=== PATIENT | female | born 1975 | race Caucasian/White ===

== ENCOUNTER 2017-01-30 12:27 | Inpatient (IN) ==
--- NOTE | 2017-01-30 13:03 | Emergency Department Note ---
Dyllan Medrano Brittany, am scribing for, and in the presence of, Prateek Gaspar MD 12: 55. Chasity Medrano James D, MD, personally performed the services described in this documentation, ascribed by Kitty Mijares in my presence, and it is both accurate and complete . Arrival - Arrival Chief Complaint: Chest Pain Stated Complaint: CP TRANSFER ED Nursing Triage Note: PT TRANSFERED FROM [facility] ER FOR EVALUATION OF CHEST PAIN. PT HAD + DRUG SCREEN [employer]HALT [employer]ER. PT REPORTS HAVING THIS CP FOR SEVERAL MONTHS. Mode of Arrival: Stretcher Limitations: No Limitations Source: Patient, RN Notes Reviewed - History of Present Illness HPI Narrative: This is a 41 y/o white female, who presents to the ED for further elevation of CP which started 3 months ago. She was transferred from [facility] for chest pains. She reports she is SOB with the chest pain but is not associated with exertion. . She denies any diaphoresis. She reports nausea as well. She states she was given Lovanox, Aspirin, and Nitro while at [facility]. She now states the chest pain is resolved. Pt has no other complaints/pain in the ED at this time. Pt has a PMHx fo HTN and GERD. PT denies a surgical Hx. Pt has a family medical hx of heart disease. Pt smokes 1 PPD, but denies the use of street drugs and alcohol. Onset (ago): month(s) ("Several months") Consistency: now resolved Severity: moderate Allergies/Adverse Reactions: Allergies Allergy/AdvReac Type Severity Reaction Status Date / Time No Known Allergies Allergy Unverified 01/30/17 12:30 Home Medications: Home Medications Medication Instructions Recorded Confirmed Type Unable To Obtain [Unable to Obtain] 01/30/17 01/30/17 History Review of System - Review of System 12 point system: reviewed and no additional remarkable complaints except as stated - Review of System Constitutional: Absent: diaphoresis Cardiovascular: Present: chest pain, other (Dyspnea) Gastrointestinal: Present: nausea Medical,Surgical,& Family Hx - Medical History Cardio: History of: Hypertension Gastrointestinal: History of: GERD - Family History Family History: Reports;: Family Heart Disease - Social History Smoking Status: Unknown if ever smoked Exam Vital Signs: Vital Signs Temperature 97.0 F L 01/30/17 12:45 Pulse Rate 56 L 01/30/17 12:45 Respiratory Rate 20 01/30/17 12:45 Blood Pressure 114/65 01/30/17 12:45 O2 Sat by Pulse Oximetry 95 01/30/17 12:45 GENERAL: This is a well-nourished well-developed white female, smells of cigarettes, in no apparent distress. VITAL SIGNS: Reviewed HEENT: Head is atraumatic and normocephalic. Pupils are equal round react to light. Extraocular movements are intact. Oropharynx is benign with moist mucous membranes. NECK: Neck is soft and supple without tenderness. There are no masses. There is no lymphadenopathy. LUNGS: Lungs are clear to auscultation. Chest rises symmetrically. There is no chest wall tenderness. CV: Heart is regular rate and rhythm without murmurs rubs or gallops. ABDOMEN: Abdomen is soft, nontender to palpation. There are no abdominal abnormal masses palpated. There is no organomegaly. Bowel sounds are present and active. SKIN: Skin is warm and dry. No rash. EXTREMITIES: Patient has full range of motion without tenderness. There is no pedal edema. NEUROLOGIC: Awake alert and oriented 4. Cranial nerves II through XII are grossly intact. Motor is 5 over 5 in all extremities bilaterally. Course - Consultations Consultation #1: Discussed with Dr. Chase. Patient will be admitted to her service. Patient will need to be taken to the [facility] electively for evaluation of possible coronary artery disease. Results - Labs Lab Results: I have reviewed the patients labs Labs: Lab performed at [facility] and reviewed by me: Troponin I 0.2 Chemistry: Sodium 143, potassium 3.2, chloride 104, CO2 28, creatinine 0.8, BUN 6.0, calcium 10.5, glucose 108, ALT 25, AST 25, alk phos 57, magnesium 1.5 CBC: WBCs 9100, hemoglobin 13.6, hematocrit 42.3, platelet count 321,000 Urine drug screen: positive benzos, positive opiates, positive THC, positive oxycodone, negative barbiturates, negative cocaine, negative phencyclidine Urinalysis: Specific gravity 1.015, pH 6.0, WBC 0, RBC 0, nitrites negative - EKG EKG results: interpreted by ERMD - Impressions EKG: Sinus bradycardia with a rate of 55, T-wave inversion anteriorly and laterally consistent with ischemia, normal axis. - Diagnostic Findings Procedure: Chest x-ray: image reviewed by me Disposition Clinical Impression: Nicotine addiction, Family history of coronary artery disease in brother, Essential hypertension, Polysubstance abuse, NSTEMI (non-ST elevated myocardial infarction) Case discussed with: patient Disposition: Still a Patient Condition: Stable Time of Disposition: 13:03
--- NOTE | 2017-01-30 13:23 | XRay Report ---
XR chest 2V Indication: Chest pain. Chest 2 views: No comparison. Heart size and mediastinal contour are normal. There is diffuse mild parabronchial thickening present. No focal infiltrates are shown. Pleural spaces are clear. Bones are intact. Impression: Mild airways disease such as bronchitis or viral syndrome. No focal pneumonia. PROCEDURE INTERPRETED AT [facility] DEPARTMENT OF RADIOLOGY Final Report Signed by: Brenton Santizo M.D.
--- NOTE | 2017-01-30 13:32 | EKG Report ---
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
[2017-01-30] MEDS ORDERED: ENOXAPARIN 80 MG/0.8 ML SYRINGE SUBCUT ONE (14:02)
[2017-01-30] MEDS ORDERED: MAGNESIUM SULF RIDER 2 GM in PREMIX 1 EACH IV PRN ×2 (14:13→14:47)
[2017-01-30] MEDS ORDERED: ONDANSETRON 4 MG/2 ML VIAL IV PRN (14:13)
[2017-01-30] MEDS ORDERED: ZALEPLON 5 MG CAPSULE PO PRN (14:13)
[2017-01-30] MEDS ORDERED: SODIUM CHLORIDE 0.9% 1,000 ML IV SCH (14:13)
[2017-01-30] MEDS ORDERED: LABETALOL 20 MG/4 ML SYRINGE IV PRN (14:13)
[2017-01-30] MEDS ORDERED: MAGNESIUM SULF RIDER 4 GM in PREMIX 1 EACH IV PRN (14:13)
--- NOTE | 2017-01-30 14:26 | Cardiology History & Physical ---
<Carolyn Savage - Last Filed: 01/30/17 14:46> Assessment and Plan - Time spent with patient Time spent with patient: Greater than 30 minutes (1) NSTEMI (non-ST elevated myocardial infarction) Status: Acute Assessment and plan: Patient's troponin at outside facility was noted to be 1.2. At [facility] was noted to be 1.0. Patient's EKG revealed T-wave inversion in anterior leads. Patient is currently chest pain-free. Patient received 80 mg of Lovenox and aspirin 325 mg today at 11:19 am at [facility]. Will add aspirin 81 mg p.o. daily starting tomorrow. Risk and benefits of heart catheterization have been reviewed with the patient. She agrees to proceed with this procedure tomorrow with Dr. Jordan. Will admit patient to telemetry and keep n.p.o. after midnight. We will continue to monitor cardiac biomarkers and EKGs. Current Visit: Yes (2) Essential hypertension Status: Chronic Assessment and plan: Patient's blood pressure is well controlled at this time will continue current plan of care. Current Visit: Yes (3) Nicotine addiction Status: Chronic Assessment and plan: Counseled patient on the importance of smoking cessation. Current Visit: Yes (4) Family history of premature CAD Status: Acute Assessment and plan: Patient's brother at age 41 from myocardial infarction. Patient's father from myocardial infarction age 74. Current Visit: Yes History of Present Illness Chief complaint: Chest pain History of present illness: Ms. Sharp is a 41 year old female without known coronary artery disease, not routinely followed by cardiology. Patient was transferred from [facility] with positive troponin and chest pain. Patient has cardiac risk factors significant for hypertension, family history of premature coronary artery disease (brother of [place] at age 41 and dad had myocardial infarction age 74) and current every day smoker (has smoked 1 pack per day since age 14). Patient's past medical history includes depression and anxiety. Patient has never underwent heart catheterization nor cardiac stress testing. Patient was transferred from [facility] for further evaluation of chest pain and troponin of 1.2. At [facility], patient received Lovenox 80 mg subcu and aspirin 325 mg. Patient reports that she has been experiencing chest pain for approximately 2 months. She describes this pain as a mid sternal chest tightness that radiates to her left arm. She tells me that this is an intermittent pain that usually occurs with activity and exertion approximately once to twice a week. She is unable to identify any alleviating factors. Her chest discomfort is also associated with nausea, vomiting, shortness of breath and diaphoresis. Patient reports that over the past 2 weeks her chest pain has worsened and has seemed to last longer. She made an appointment with her primary care provider, Dr. Edwards. At the time of her appointment she was told to report to the ER for further evaluation and workup. At [facility], her troponin was noted to be 1.2 with EKG changes suggestive of ischemia. She was transferred at that time to [facility]. Of note, patient confirms worsening dyspnea on exertion and recent decline in her exercise tolerance. She also confirms easy fatigability. She denies fever , chills, cough, abdominal pain, melena, orthopnea, PND and lower extremity edema. Patient was seen and examined in the ER. She is currently chest pain-free. She tells me that she has experienced any further chest pain after given the Nitropaste at [facility]. Troponin at our facility is noted to be 1.07. EKG reveals inverted T waves in leads V3, V4 and V5. This is suggestive of NSTEMI. Risk and benefits of heart catheterization were discussed with the patient. She agrees to proceed with this procedure tomorrow morning with Dr. Jordan. Patient has no known allergies. Patient will be admitted under cardiology's service and housed on the telemetry floor. We will monitor patient's cardiac biomarkers and EKG overnight. We will keep patient n.p.o. after midnight and plan for heart catheterization in the morning. Home Medications Medication Instructions Recorded Confirmed Type Unable To Obtain [Unable to Obtain] 01/30/17 01/30/17 History Allergies Allergy/AdvReac Type Severity Reaction Status Date / Time No Known Allergies Allergy Unverified 01/30/17 12:30 - Constitutional Constitutional: Present: fatigue. Absent: chills, fever(s), frequent falls, weakness, weight gain, weight loss - Cardiovascular Cardiovascular: Present: as per HPI, chest pain at rest, chest pain with activity, diaphoresis, dyspnea, dyspnea on exertion, radiating jaw, neck or arm pain. Absent: claudication, edema, lightheadedness, orthopnea, palpitations, PND - Respiratory Respiratory: Present: dyspnea, dyspnea on exertion. Absent: cough, hemoptysis, wheezing, snoring, pain on inspiration, change in phlegm color - Gastrointestinal Gastrointestinal: Present: nausea, vomiting. Absent: abdominal pain, change in bowel habits, coffee ground emesis, constipation, cramping, diarrhea, hematemesis, hematochezia, loose stools, melena - Neurological Neurological: Absent: abnormal gait, abnormal speech, behavioral changes, confusion, dizziness, frequent falls, syncope - Psychiatric Psychiatric: Present: anxiety, depression - Hematologic/Lymphatic Hematologic/Lymphatic: Absent: easy bleeding, easy bruising, lymphadenopathy Medical,Surgical,& Family Hx - Medical History Cardio: History of: Hypertension Psychological: History of: Anxiety Disorders, Depression Gastrointestinal: History of: GI Problems (Gastric ulcers) - Family History Family History: Reports;: Family Heart Disease - Social History Smoking Status: Current every day smoker Cardiology Physical Exam - Constitutional Vitals: Vital Signs Temp Pulse Resp BP Pulse Ox 97.0 F L 63 20 123/89 96 01/30/17 12:45 01/30/17 13:45 01/30/17 13:45 01/30/17 13:45 01/30/17 13:45 General appearance: no acute distress, over weight - Head Head exam: Present: normal inspection, normocephalic, atraumatic - Neck Neck exam: Present: normal inspection. Absent: lymphadenopathy, tenderness, thyromegaly - Respiratory Respiratory exam: Present: clear to auscultation bilaterally. Absent: accessory muscle use, chest wall tenderness, rales, rhonchi, stridor, wheezes - Cardiovascular Cardiovascular exam: Present: regular rate and rhythm. Absent: gallop, JVD, rubs, systolic murmur - GI/Abdominal GI/Abdominal exam: Present: normal bowel sounds, soft. Absent: distended, firm , mass, tenderness - Extremities Exam Extremities exam: Present: normal inspection, normal capillary refill, other ( Normal bilateral lower extremity pulses.). Absent: calf tenderness, edema - Neurological Exam Neurological exam: Present: alert, oriented X3, normal gait - Psychiatric Psychiatric exam: Present: normal affect, normal mood - Skin Skin exam: Present: normal color, warm, dry. Absent: cyanosis, erythema Result/EKG - Labs CBC & BMP: 01/30/17 14:27 Lab Results: I have reviewed the past 24 hour labs <Yazan Jordan - Last Filed: 01/30/17 14:57> Assessment and Plan (1) NSTEMI (non-ST elevated myocardial infarction) Status: Acute Assessment and plan: I have discussed in detail the particulars of this case and I have examined the patient and reviewed the patient's chart both current and old. I was directly involved in the patient's evaluation and management and I completely agree with Carolyn Savage NP regarding this patient's evaluation and treatment plan. Current Visit: Yes History of Present Illness History of present illness: Ms. Sharp is a 41 year old female who I am seeing as a new patient. She has an elevated troponin with EKG changes which are nonspecific and has had relief of her pain with appropriate antianginals antithrombotic therapy. Our plan is to proceed with cardiac catheterization in the morning. I have reviewed with her the risks benefits and alternatives of the procedure and she is agreeable to proceeding. Questions have been answered. Cardiology Physical Exam - Constitutional Vitals: Vital Signs Temp Pulse Resp BP Pulse Ox 97.4 F L 58 L 17 117/70 97 01/30/17 14:04 01/30/17 14:04 01/30/17 14:04 01/30/17 14:04 01/30/17 14:04 Result/EKG - Labs CBC & BMP: 01/30/17 14:27 01/30/17 14:22 Labs: Laboratory Results - last 24 hr 01/30/17 01/30/17 01/30/17 13:22 14:22 14:27 WBC 8.4 RBC 4.17 Hgb 11.9 L Hct 38.0 MCV 91.1 MCH 29 MCHC 31.3 L RDW 15.4 Plt Count 310 MPV 10.3 Neut % (Auto) 62.1 Lymph % (Auto) 28.9 Ray % (Auto) 5.4 Eos % (Auto) 2.7 Baso % (Auto) 0.7 Neut # (Auto) 5.2 Lymph # (Auto) 2.4 Ray # (Auto) 0.5 Eos # (Auto) 0.2 Baso # (Auto) 0.1 Immature Gran % 0.2 Nucleated RBC % 0.0 Immature Gran # 0.02 Nucleated RBCs # 0.00 Sodium 147 H Potassium 3.6 Chloride 110 H Carbon Dioxide 28 Anion Gap 12.6 BUN 7 Creatinine 0.70 GFR Calculation 114 BUN/Creatinine Ratio 10.00 Glucose 99 Calculated Osmolality 289.4 Calcium 9.6 Magnesium 1.7 L Troponin I 1.070 H
--- NOTE | 2017-01-30 14:31 | EKG Report ---
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
[2017-01-30 14:44] LABS: Basophils # 0.1 10*3/uL (0.0-0.2); Basophils % 0.7 % (0.0-0.8); Eosinophils # 0.2 10*3/uL (0.0-0.87); Eosinophils % 2.7 % (0.00-10.9); Hemoglobin 11.9 GM/DL (12.0-16.0); Immature Granulocytes % 0.2 %; Immature Granulocytes Absolute 0.02 #; Lymphocytes # 2.4 10*3/uL (1.4-4.0); Lymphocytes % 28.9 % (21.3-54.2); Mean Corpuscular HGB Conc 31.3 GM/DL (32-36); Mean Corpuscular Hemoglobin 29 PG (27-34); Mean Corpuscular Volume 91.1 FL (87-102); Mean Platelet Volume 10.3 FL (9.6-12.0); Monocytes # 0.5 10*3/uL (0.11-0.8); Monocytes % 5.4 % (1.7-12.7); Neutrophils # 5.2 10*3/uL (1.4-7.4); Neutrophils % 62.1 % (38.7-73.9); Platelet Count 310 T/CUMM (130-400); Red Blood Count 4.17 MC/CUMM (3.8-5.5); Red Cell Distribution Width 15.4 % (9.3-17.3); White Blood Count 8.4 T/CUMM (4-12)
[2017-01-30] MEDS ORDERED: POTASSIUM CHLORIDE RIDER 10 MEQ in PREMIX 1 EACH IV PRN (14:47)
[2017-01-30 14:52] LABS: Calcium 9.6 MG/DL (8.5-10.1); Magnesium 1.7 MG/DL (1.8-2.4); Osmolality,Calculated 289.4 MOS/KG (273-304); Potassium 3.6 MMOL/L (3.5-5.1)
[2017-01-30 14:56] LABS: PT Patient Result 10.3 SECS; Partial Thromboplastin Time 32.4 SECS (0-40)
[2017-01-30] MEDS: PANTOPRAZOLE 40 MG TABLET PO SCH (16:47)
--- NOTE | 2017-01-30 17:42 | EKG Report ---
Stationary ECG Study 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
[2017-01-30] MEDS ORDERED: ENOXAPARIN 80 MG/0.8 ML SYRINGE SUBCUT SCH (19:30)
[2017-01-30] MEDS: ENOXAPARIN 80 MG/0.8 ML SYRINGE SUBCUT SCH (20:33)
[2017-01-31 03:27] LABS: Basophils # 0.1 10*3/uL (0.0-0.2); Basophils % 0.8 % (0.0-0.8); Eosinophils # 0.4 10*3/uL (0.0-0.87); Eosinophils % 5.2 % (0.00-10.9); Hematocrit 36.2 VOL% (35.7-47.0); Hemoglobin 11.3 GM/DL (12.0-16.0); Immature Granulocytes % 0.1 %; Immature Granulocytes Absolute 0.01 #; Lymphocytes # 3.4 10*3/uL (1.4-4.0); Lymphocytes % 46.8 % (21.3-54.2); Mean Corpuscular HGB Conc 31.2 GM/DL (32-36); Mean Corpuscular Hemoglobin 28 PG (27-34); Mean Corpuscular Volume 90.5 FL (87-102); Mean Platelet Volume 10.5 FL (9.6-12.0); Monocytes # 0.4 10*3/uL (0.11-0.8); Monocytes % 5.9 % (1.7-12.7); Neutrophils % 41.2 % (38.7-73.9); Platelet Count 276 T/CUMM (130-400); Red Cell Distribution Width 15.3 % (9.3-17.3); White Blood Count 7.4 T/CUMM (4-12)
[2017-01-31 03:59] LABS: Calcium 9.4 MG/DL (8.5-10.1); Magnesium 1.7 MG/DL (1.8-2.4); Osmolality,Calculated 286.6 MOS/KG (273-304); Potassium 3.5 MMOL/L (3.5-5.1)
[2017-01-31 04:01] LABS: Risk Ratio 3.9
[2017-01-31 04:06] LABS: Troponin I Only 0.716 NG/ML (0.00-0.045)
[2017-01-31] MEDS ORDERED: LIDOCAINE 1%/EPI INJ 20 ML VIAL ONE (06:59)
[2017-01-31] MEDS ORDERED: HEPARIN/NACL 0.9% 2 UNITS/ML 1,000 ML IV ONE (06:59)
--- NOTE | 2017-01-31 07:53 | EKG Report ---
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
[2017-01-31] MEDS ORDERED: NITROGLYCERIN 2% OINT 1 INCH/GM PACK TOP ONE (07:54)
[2017-01-31] MEDS ORDERED: diphenhydrAMINE CAP 25 MG CAPSULE PO ONE (08:00)
[2017-01-31] MEDS ORDERED: DEXTROSE 5% NACL 0.45% 1,000 ML IV SCH (08:00)
[2017-01-31] MEDS ORDERED: DIAZEPAM 5 MG TABLET PO ONE (08:00)
[2017-01-31] MEDS: ENOXAPARIN 80 MG/0.8 ML SYRINGE SUBCUT SCH (08:09)
[2017-01-31] MEDS: MORPHINE 2 MG/1 ML SYRINGE IV PRN ×3 (08:09→18:51)
[2017-01-31] MEDS: PANTOPRAZOLE 40 MG TABLET PO SCH (08:09)
[2017-01-31] MEDS: ASPIRIN 325 MG TABLET PO SCH (08:09)
--- NOTE | 2017-01-31 08:12 | Event Note ---
I was called to see patient by nursing for chest pain. She had been up ambulating in the room when she experienced her chest pressure. She got back into bed, rested and her symptoms resolved. On physical exam her lungs are clear to auscultation bilaterally, cardiac exam is a regular rate and rhythm without murmur rub or gallop. EKG shows sinus rhythm with persistent anterior T -wave inversions, new inferior T-wave inversions. She is scheduled for cardiac catheterization this morning.
[2017-01-31] MEDS ORDERED: MIDAZOLAM 2 MG/2 ML VIAL ONE (08:46)
[2017-01-31] MEDS ORDERED: fentaNYL 100 MCG/2 ML VIAL ONE (08:47)
[2017-01-31 08:57] LABS: Troponin I Only 0.682 NG/ML (0.00-0.045)
[2017-01-31] MEDS ORDERED: ASPIRIN 325 MG TABLET PO SCH (09:00)
--- NOTE | 2017-01-31 09:08 | History and Physical Update ---
Sedation H&P Update - History and Physical H&P was reviewed, the patient examined and there: are no changes in the patients condition since last H&P was completed. - Sedation Plan for Sedation: moderate Patient Consent: Procedure disscussed with patient and patinet has consented., Risks and benefits were discussed with patient,including infection,, bleeding, injury to surrounding structures, seizure, temporary nerve, Patient understands and accepts potential risks/benefits and agrees to, proceed. ASA Class: IV Airway Assessment: Class III: Soft palate, base of uvula visible
[2017-01-31] MEDS ORDERED: HYDROmorphone 2 MG/1 ML VIAL ONE (09:12)
[2017-01-31] MEDS ORDERED: TICAGRELOR 90 MG TABLET ONE (09:20)
[2017-01-31] MEDS ORDERED: TIROFIBAN 5,000 MCG/100 ML PREMIX IV ONE (09:24)
[2017-01-31] MEDS ORDERED: TIROFIBAN 5,000 MCG/100 ML PREMIX IV SCH (09:36)
[2017-01-31] MEDS ORDERED: NITROGLYCERIN DRIP 50 MG/250 ML BOTTLE IV ONE (09:38)
--- NOTE | 2017-01-31 10:35 | Cardiac Catheterization ---
Date of Procedure:: 01/31/17 Pre-op Diagnosis: Non-ST elevation myocardial infarction Post-op diagnosis: same Procedure: Clinical summary: This is a 41-year-old lady who has a history risk factors now with elevated troponins nondiagnostic EKG with episodes of chest pain over the last several months now for diagnostic evaluation and intervention if indicated. Risks benefits and alternatives of the procedure been reviewed with the patient. She appears to understand these and is agreeable to proceeding. Description of procedure: Procedure performed: 1: Left heart catheterization 2: Coronary angiography 3: Percutaneous intervention to the PDA with a 2.5 x 15 mm Zions drug-eluting stent with a good angiographic result 4: Percutaneous intervention to the proximal right coronary artery with a 4.0 x 15 mm Zions drug-eluting stent dilated to 4.5 mm with a noncompliant balloon post stent deployment. 5: Percutaneous intervention to the proximal LAD with a 3.0 x 15 mm Zions drug- eluting stent with a good angiographic result 6: Left ventriculography 7: Right femoral sheath angiography 8: Angio-Seal closure right femoral arteriotomy site After obtaining informed consent the patient was brought to the [facility] Unit Operator with a right groin was prepped and draped in usual sterile manner. Using intravenous sedation local anesthesia needle was inserted right femoral artery without difficulty and a 6 Croat[place] sheath was positioned without difficulty. A Nancy left diagnostic catheter was advanced over guidewire under fluoroscopic control to the ascending aorta where angiography of the left coronary artery was undertaken in multiple views. After adequate angiograms of the left coronary were obtained this catheter was withdrawn and a a.m. or him right coronary catheter was advanced over guidewire under fluoroscopic control using her where angiography the right coronary was undertaken multiple views. After adequate angiograms of the right coronary artery were obtained this catheter was withdrawn and we elected to proceed with percutaneous intervention. A Nancy right guide was advanced over guidewire under fluoroscopic control deviation aorta where the right coronary ostium was engaged. A 2.5 x 12 mm [place] balloon was advanced to the proximal right lesion inflated briefly to 10 justina. This balloon then was advanced to the PDA and placed across East stenosis of the proximal PDA and was inflated to 10 justina for roughly 14 seconds. This balloon was then withdrawn and a 2.5 x 15 mm Zions Alpine stent was advanced to the distal lesion at the proximal PDA and deployed to a maximum 10 atmospheres. There was distal spasm relieved with 200 g of intracoronary nitroglycerin. After completion of stent deployment there appeared to be a good result. Next the stent delivery balloon was removed and a 4.0 x 15 mm MeetMe Alpine drug- eluting stent was advanced to the proximal right coronary and deployed to a maximum 16 justina. Next a 4.5 x 12 mm [employer] Quantum [place] balloon was advanced to the proximal right stent and 2 inflations to 10 justina were taken with good stent expansion and appropriate stepup and stepdown both proximal and distal. At this point the balloon and guidewire were pulled back into the guide repeat angiography confirmed a good result at both sites. The catheter was removed from the sheath. Next a Nancy left guide was advanced over a guidewire under fluoroscopic control the ascending aorta where the left coronary artery was engaged. An 014 BMW wire was advanced to the distal LAD and a 2.5 x 12 mm [place] balloon was advanced to the area of stenosis and inflated to a maximum of 10 justina. This balloon then was removed off of the wire and a 3.0 x 15 mm Uguru Alpine stent was advanced to the area of stenosis and deployed at a maximum 14 justina. There was good stepup and stepdown both proximal and distal with REAGAN grade III flow down the vessel noted end procedure. The delivery balloon and wire were pulled back into the guide repeat angiography confirmed a good result the wire and balloon were then removed from the guide. The guide was then removed from the sheath. A pigtail ventricular graft catheter was advanced over guidewire under fluoroscopic control he is in order where the catheter was advanced across the aortic valve. Intraventricular hemodynamic some measured in the catheter was used to perform ventriculography injecting 24 cc of contrast at 12 cc/s. After ventriculography this catheter was withdrawn under hemodynamic monitoring from the ventricle to the aorta and then removed. Patient underwent right femoral sheath angiography which demonstrated anatomy appropriate for Angio-Seal closure. This was performed without difficulty. Good hemostasis was obtained. Patient was transferred to the CCU having suffered no significant immediate complications. Hemodynamic: Please see coming data sheet Coronary arteriography: Left coronary: Left main coronary is well-developed and free of significant obstructing lesions. The circumflex coronary is a large nondominant vessel possesses no significant lesions which course. The branches of the circumflex likewise are free of significant obstructing lesions. Left anterior descending coronary is a large vessel extends from the apex of the ventricle. In the proximal portion of the LAD is an area of 95% stenosis just distal to the septal perforators involving a large diagonal branch. The remaining branches of the LAD are noted to be free of significant obstructing lesions. There is mild to moderate disease of the LAD just beyond the diagonal branch but the distal vessel appears to be free of significant obstructing lesions. The distal LAD fills the distal PDA. Right coronary artery: Right coronary is a very large dominant vessel that possesses an area of 99% stenosis in its proximal portion. The remainder the right coronary proper is free of significant obstructing lesions. PDA in its proximal portion has an area of 90% stenosis noted remainder this vessel appears to be free of significant obstructing lesions. Percutaneous intervention: After the above-described procedure the lesions went from 95% of the distal PDA to 0% post stent deployment. The proximal right stenosis went from 99% stenotic to less than 0% stenotic post stent deployment. The LAD stenosis went from 95% stenotic to roughly 0% stenotic post an appointment. There was REAGAN grade III flow down all vessels stented end procedure. Left ventriculography: After injection of contrast left ventricle is known to be of normal size with normal contractility. There is mild distal inferior hypokinesis noted. Overall ejection fraction measures in the 55% range. Mitral and aortic structures appear normal by ventriculography. Right femoral sheath angiography: Sheath appears to enter just above the bifurcation. No significant disease of the distal iliac, common femoral bifurcation can be noted. Conclusions: Successful multivessel percutaneous intervention as outlined above with a good angiographic result after stenting the proximal PDA, proximal right coronary artery, and proximal LAD. Normal left ventricular size with mild distal inferior wall hypokinesis Angio-Seal closure right femoral arteriotomy site Discussion recommendations: Patient presents with a non-ST elevation myocardial infarction. I suspect this was right coronary artery distribution ischemia. She has now undergone complete revascularization with stents in the proximal PDA, proximal right coronary artery, and proximal LAD with good angiographic result. She will be monitored closely for recurring ischemia or bleeding and continue aggressive risk factor modification. Surgeon / Physician: Yazan Jordan Estimated blood loss: minimal Specimens: none sent Condition: stable - Medications / Follow-up
[2017-01-31] MEDS ORDERED: NITROGLYCERIN SL 0.4 MG TABLET SL PRN (10:36)
--- NOTE | 2017-01-31 11:52 | EKG Report ---
Stationary ECG Study [facility] Test Date: 01/31/2017 11:52:47 AM Pat Name: JULIAN BLANCO Department: Room: 119 Gender: F Fire Behavior Analyst: GALILEO : 1975 Requested by: Yazan Jordan Order Number: [id number] Reading MD: SUKHDEEP CARDENAS Intervals [place] Rate: 57 P: 61 W[place]: 142 QRS: 44 QRSD: 100 T: 260 QT: 383 QTc: 376 Interpretive Statements SINUS RHYTHM MODERATE T-WAVE ABNORMALITY, CONSIDER ANTERIOR ISCHEMIA Electronically Signed On 01-31-17 23:03:09 CDT by SUKHDEEP CARDENAS [email or web address]
[2017-01-31] MEDS: ESCITALOPRAM 10 MG TABLET PO SCH (16:07)
[2017-01-31] MEDS ORDERED: traZODone 50 MG TABLET PO SCH (21:00)
[2017-01-31] MEDS ORDERED: SIMVASTATIN 40 MG TABLET PO SCH (21:00)
[2017-01-31] MEDS: METOPROLOL TARTRATE 50 MG TABLET PO SCH (21:17)
[2017-02-01 04:52] LABS: Basophils # 0.1 10*3/uL (0.0-0.2); Basophils % 0.6 % (0.0-0.8); Eosinophils # 0.3 10*3/uL (0.0-0.87); Eosinophils % 3.8 % (0.00-10.9); Hematocrit 34.8 VOL% (35.7-47.0); Hemoglobin 11.2 GM/DL (12.0-16.0); Immature Granulocytes % 0.2 %; Immature Granulocytes Absolute 0.02 #; Lymphocytes % 24.3 % (21.3-54.2); Mean Corpuscular HGB Conc 32.2 GM/DL (32-36); Mean Corpuscular Hemoglobin 29 PG (27-34); Mean Corpuscular Volume 89.9 FL (87-102); Mean Platelet Volume 10.1 FL (9.6-12.0); Monocytes # 0.5 10*3/uL (0.11-0.8); Monocytes % 5.6 % (1.7-12.7); Neutrophils # 5.4 10*3/uL (1.4-7.4); Neutrophils % 65.5 % (38.7-73.9); Platelet Count 273 T/CUMM (130-400); Red Blood Count 3.87 MC/CUMM (3.8-5.5); Red Cell Distribution Width 15.2 % (9.3-17.3); White Blood Count 8.3 T/CUMM (4-12)
[2017-02-01 05:21] LABS: Blood Urea Nitrogen 7 MG/DL (7-18); Calcium 9.3 MG/DL (8.5-10.1); Cholesterol 148 MG/DL (50-200); Glucose 103 MG/DL (74-106); HDL Cholesterol 40 MG/DL (40-60); Osmolality,Calculated 287.6 MOS/KG (273-304); Potassium 3.5 MMOL/L (3.5-5.1); Sodium 146 MMOL/L (136-145); Triglycerides 231 MG/DL (2-150); VLDL CHOLESTEROL 46.2 MG/DL
--- NOTE | 2017-02-01 08:07 | EKG Report ---
Stationary ECG Study [facility] Test Date: 02/01/2017 7:43:19 AM Pat Name: JULIAN BLANCO Department: Room: 119 Gender: F [place] Caller: REBEKAH : 1975 Requested by: Yazan Jordan Order Number: [id number] Reading MD: YAZAN JORDAN Intervals [place] Rate: 60 P: 69 ME: 120 QRS: 102 QRSD: 105 T: -81 QT: 418 QTc: 419 Interpretive Statements SINUS RHYTHM MARKED RIGHT AXIS DEVIATION ST DEVIATION AND MODERATE T-WAVE ABNORMALITY, CONSIDER ANTEROLATERAL ISCHEMIA Electronically Signed On 02-01-17 09:18:41 CDT by YAZAN JORDAN [email or web address]
--- NOTE | 2017-02-01 08:35 | Discharge Summary ---
<Carolyn Savage - Last Filed: 02/01/17 08:36> Hospital Course - Hospital Course Hospital Course: Ms. Sharp is a 41 year old female without known coronary artery disease, not routinely followed by cardiology. Patient was transferred from [facility] with positive troponin and chest pain. Patient has cardiac risk factors significant for hypertension, family history of premature coronary artery disease (brother of TX at age 41 and dad had myocardial infarction age 74) and current every day smoker (has smoked 1 pack per day since age 14). Patient's past medical history includes depression and anxiety. Patient has never underwent heart catheterization nor cardiac stress testing. Patient presented to [facility] January 30 with non-ST elevation [place]. Patient's troponin upon arrival to [place] [facility] was noted to be 1.07. Patient was taken to the cathead worker per Dr. Jordan January 31 with successful multivessel percutaneous intervention with a good angiographic result after stenting the proximal PDA, proximal right coronary artery proximal LAD. Normal left ventricular size with mild distal inferior wall hypokinesis was also noted. Patient did well post catheterization and was transferred to the CCU in stable condition. Patient was seen and examined in the CCU this morning. Patient did well overnight and was without any complications post catheterization. Right groin is soft without bleeding, hematoma and bruit. Bilateral DP and PT pulses 2+. Patient denies chest pain, heaviness and tightness this morning. She has ambulated around the room without any chest pain or shortness of breath. Right groin has remained stable post ambulation. Creatinine is stable post-cath at 0.6. Electrolytes are stable this morning. She is currently in normal sinus rhythm with heart rates in the 60s without any overt arrhythmias or ectopy noted. Blood pressure is suboptimally controlled this morning. Benazepril 5 mg daily has been added to patient's medication regimen. I have discussed the importance of compliance with dual antiplatelet therapy. Patient has verbalized understanding of the importance of these medications. Smoking cessation was encouraged. Patient has been given a follow-up with Dr. Jordan in 2 weeks with CBC, BMP and EKG. Discharge instructions and medications have been reviewed with the patient. Her and her both verbalized understanding. - Time spent with patient Time with patient DS: Greater than 30 minutes Diagnosis - Discharge Diagnosis (1) NSTEMI (non-ST elevated myocardial infarction) Status: Resolved (2) Essential hypertension Status: Chronic (3) Nicotine addiction Status: Chronic (4) Family history of premature CAD Status: Chronic Specialty Discharge - Follow Up or Referrals Follow up with: Yazan Jordan MD [Physician] - 2 Weeks (Appointment with Dr. Jordan in 2 weeks CBC, BMP and EKG February 09 @ 11:00 for CBC and BMP February 15 @ 3:10 Appointment) Discharge Plan - Discharge Data Disposition: Disch To Home/Self Care Condition at Discharge: Stable Discharge Diet: heart healthy Activity: no lifting, other (Post cath expectations) Hygiene: may shower Weight Bearing at Discharge: other (Post cath expectations) Driving: other (Post cath expectations) Contact your physician if you experience:: fever over 101, Difficulty voiding, Redness or swelling, Nausea/Vomiting, Shortness of breath, Bleeding, pain uncontrolled by pain medications - Discharge Medications New Aspirin Tab 81 mg PO DAILY #30 tablet Benazepril [Lotensin] 5 mg PO DAILY #15 tablet Metoprolol Tartrate Tab [Lopressor Tab] 25 mg PO BID #30 tablet Nitroglycerin Sl Tab [Nitrostat] 0.4 mg SL Q5M PRN #1 bottle PRN Reason: Chest Pain Simvastatin [Zocor] 40 mg PO BEDTIME #30 tablet Ticagrelor [Brilinta] 90 mg PO BID #60 tablet Continue traZODone [Desyrel] 150 mg PO BEDTIME hydrOXYzine pamoate [Hydroxyzine Pamoate] 25 mg PO TID Escitalopram [Lexapro] 20 mg PO DAILY Sucralfate 1 gm PO ACHS Dicyclomine Cap/Tab [Bentyl Cap/Tab] 10 mg PO ACHS Omeprazole 40 mg PO DAILY Discontinued Lisinopril 20 mg PO DAILY - Follow Up or Referral Follow Up: Yazan Jordan MD [Physician] - 2 Weeks (Appointment with Dr. Jordan in 2 weeks CBC, BMP and EKG February 09 @ 11:00 for CBC and BMP February 15 @ 3:10 Appointment) - Forms/Instructions Instructions: Myocardial Infarction (GEN), Coronary Artery Disease (GEN), Left Heart Catheterization (DC), How to Stop Smoking (DC), Cigarette Smoking and Your Health (GEN), Coronary Intravascular Stent Placement (DC) Exam - Constitutional Vitals: Period Temp Pulse Resp BP Sys/Thomas Pulse Ox Last 24 Hr 97.2 F-98.9 F 52-68 15-22 113-188/67-98 93-100 General appearance: normal weight, no acute distress - Head Head exam: Present: normal inspection, normocephalic, atraumatic - Neck Neck exam: Present: normal inspection. Absent: lymphadenopathy, tenderness, thyromegaly - Respiratory Respiratory exam: Present: clear to auscultation bilaterally. Absent: accessory muscle use, chest wall tenderness, rales, rhonchi, stridor, wheezes - Cardiovascular Cardiovascular exam: Present: regular rate and rhythm. Absent: bradycardia, carotid bruit, gallop, rubs, systolic murmur, tachycardia - GI/Abdominal GI/Abdominal exam: Present: normal bowel sounds, soft. Absent: distended, firm , mass, tenderness - Extremities Exam Extremities exam: Present: normal inspection, normal capillary refill, other ( Normal bilateral lower extremity pulses). Absent: calf tenderness, edema - Neurological Exam Neurological exam: Present: alert, oriented X3, normal gait - Psychiatric Psychiatric exam: Present: normal affect, normal mood. Absent: agitated, anxious - Skin Skin exam: Present: normal color, warm, dry, other (Right groin soft without bleeding, hematoma and bruit. Distal pulses 2+.). Absent: cyanosis, erythema Discharge Results Procedures and tests throughout hospitalization: Pending Orders 01/31/17 11:00 MRSA Surveillence, Inf Control Routine Labs on day of discharge: Labs from last 24 hours 02/01/17 02/01/17 02/01/17 08:14 04:45 04:45 WBC 8.3 RBC 3.87 Hgb 11.2 L Hct 34.8 L MCV 89.9 MCH 29 MCHC 32.2 RDW 15.2 Plt Count 273 MPV 10.1 Neut % (Auto) 65.5 Lymph % (Auto) 24.3 [place] % (Auto) 5.6 Eos % (Auto) 3.8 Baso % (Auto) 0.6 Neut # (Auto) 5.4 Lymph # (Auto) 2.0 [place] # (Auto) 0.5 Eos # (Auto) 0.3 Baso # (Auto) 0.1 Immature Gran % 0.2 Nucleated RBC % 0.0 Immature Gran # 0.02 Nucleated RBCs # 0.00 Sodium 146 H Potassium 3.5 Chloride 110 H Carbon Dioxide 27 Anion Gap 12.5 BUN 7 Creatinine 0.60 GFR Calculation 121 BUN/Creatinine Ratio 11.00 Glucose 103 Calculated Osmolality 287.6 Calcium 9.3 Magnesium 1.7 L Total Creatine Kinase 36 CK-MB (CK-2) 2.5 Troponin I 1.030 H Triglycerides 231 H Cholesterol 148 LDL Cholesterol 86.0 VLDL Cholesterol 46.2 HDL Cholesterol 40 Heart Disease Risk Ratio 3.70 01/31/17 01/31/17 18:25 11:03 WBC RBC Hgb Hct MCV MCH MCHC RDW Plt Count MPV Neut % (Auto) Lymph % (Auto) [place] % (Auto) Eos % (Auto) Baso % (Auto) Neut # (Auto) Lymph # (Auto) [place] # (Auto) Eos # (Auto) Baso # (Auto) Immature Gran % Nucleated RBC % Immature Gran # Nucleated RBCs # Sodium Potassium Chloride Carbon Dioxide Anion Gap BUN Creatinine GFR Calculation BUN/Creatinine Ratio Glucose Calculated Osmolality Calcium Magnesium Total Creatine Kinase CK-MB (CK-2) Troponin I 0.909 H D 0.589 H Triglycerides Cholesterol LDL Cholesterol VLDL Cholesterol HDL Cholesterol Heart Disease Risk Ratio - Imaging and Cardiology Cardiology Procedure: report reviewed by Procedure: Chest x-ray: report reviewed by nv DS: Provider Date of admission: 01/30/17 13:03 Primary care physician: . No PCP Attending physician on admission: Lisette Chase, Consults: 01/30/17 14:28 Consult to Pharmacy [CONS] Routine Reason for Pharmacy Consult: Adjust Meds Renal Funct 01/31/17 06:46 Consult to Cardiac Rehabilitation [CONS] Routine Reason for Cardiac Rehabilitation: Other 01/31/17 10:36 Consult to Cardiac Rehabilitation [CONS] Routine Reason for Cardiac Rehabilitation: Risk Factor Modification Discharging clinician: Carolyn Savage NP Expected date of discharge: 02/01/17 <Yazan Jordan - Last Filed: 02/01/17 09:12> Hospital Course - Hospital Course Hospital Course: I have discussed in detail the particulars of this case and I have examined the patient and reviewed the patient's chart both current and old. I was directly involved in the patient's evaluation and management and I completely agree with Carolyn Savage NP regarding this patient's evaluation and treatment plan. Diagnosis - Discharge Diagnosis (1) NSTEMI (non-ST elevated myocardial infarction) Status: Resolved
[2017-02-01] MEDS: ESCITALOPRAM 10 MG TABLET PO SCH (08:44)
[2017-02-01] MEDS: PANTOPRAZOLE 40 MG TABLET PO SCH (08:45)
[2017-02-01] MEDS: ASPIRIN 325 MG TABLET PO SCH (08:45)
[2017-02-01] MEDS: METOPROLOL TARTRATE 50 MG TABLET PO SCH (08:45)
[2017-02-01] MEDS ORDERED: TICAGRELOR 90 MG TABLET PO SCH (09:00)
[2017-02-01] MEDS ORDERED: BENAZEPRIL 10 MG TABLET PO SCH (09:00)
[2017-02-01 10:11] VITALS: BP 159/88
== END 2017-02-01 09:47 | disposition home or self-care (01) | DRG 247 ==
LOC: N.ED 12:27 → N.EDINP 13:03 → N.TELEN 13:59 → N.CC 01-31 10:23
PROVIDERS: ADMIT Internal Medicine Cardiovascular Disease; ATTEND Internal Medicine Cardiovascular Disease
PROC: CLCCHCL (ICD-10-PCS; 2017-01-31 09:15)